=== PATIENT | male | born 1980 | race Hispanic/Latino ===

== ENCOUNTER 2017-12-05 22:37 | Emergency (ER) | payer SELFPAY ==
[2017-12-05] MEDS ORDERED: ONDANSETRON 4 MG/2 ML VIAL ONE (23:57)
[2017-12-05] MEDS ORDERED: KETOROLAC 30 MG/ML INJ ONE (23:57)
[2017-12-05] MEDS ORDERED: NA CHLORIDE 0.9% 1,000 ML ONE (23:57)
[2017-12-06] MEDS ORDERED: HYDROCODONE/APAP 10/325 TAB ONE (00:06)
[2017-12-06 00:12] LABS: Absolute Lymphocytes (CBC) 2.1 K/uL (0.7-4.9); Absolute Monocytes 0.7 K/uL (0.1-1.3); Absolute Neutrophil 5.5 K/uL (1.8-8.0); Basophils % 2.3 % (0-1.3); Eosinophils % 0.8 % (0-4.4); Hematocrit 46.7 % (39.6-49.0); MCH 30.3 pg (27.0-35.0); MCV 90.9 fL (80-100); MPV 10.9 fL (7.6-11.3); Monocytes % 8.3 % (3.3-12.3); RBC Red Blood Cell Count 5.14 M/uL (4.33-5.43)
[2017-12-06 00:48] LABS: ALT/SGPT 80 IU/L (10-60); AST/SGOT 51 IU/L (10-42); Albumin 4.1 g/dL (3.2-5.5); Alkaline Phosphatase 87 IU/L (42-121); BUN Blood Urea Nitrogen 12 mg/dL (6-20); Bicarbonate 29 mEq/L (21-31); Bilirubin Direct 0.1 mg/dL (0-0.2); Bilirubin Total 0.8 mg/dL (0.3-1.2); Glucose Level 97 mg/dL (65-120); Lipase 39 U/L (22-51); Potassium 3.2 mEq/L (3.6-5.0); Sodium Level 140 mEq/L (135-145)
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
[2017-12-06] MEDS ORDERED: POTASSIUM CL SA 10 MEQ TAB PO ONE (02:09)
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
== END 2017-12-06 02:23 | disposition home or self-care (01) ==
LOC: ER 22:37
DX: S20.212A Contusion of left front wall of thorax, initial encounter (principal); S20.222A Contusion of left back wall of thorax, initial encounter; R10.819 Abdominal tenderness, unspecified site; V49.49XA Driver injured in collision with other motor vehicles in traffic accident, initial encounter
CPT/HCPCS: 36415; 70450; 71260; 72125; 74177; 80048; 80076; 83690; 85025; 86850; 86900; 86901; 96361; 96374; 96375; 99284; J2405; J7030; Q9967

== ENCOUNTER 2017-12-09 13:38 | Emergency (ER) | payer SELFPAY ==
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
== END 2017-12-09 14:08 | disposition home or self-care (01) ==
LOC: ER 13:38
DX: Z13.9 Encounter for screening, unspecified (principal)
CPT/HCPCS: 99281